=== PATIENT | male | born 1985 | race American Indian/Alaskan Native ===

== ENCOUNTER 2017-11-22 04:14 | Emergency (ER) | payer BC ==
[2017-11-22] MEDS ORDERED: DUONEB *Not for PRN Use IH ONE ×2 (04:31→04:32)
--- NOTE | 2017-11-22 07:23 | Emergency Department Report ---
ED Asthma HPI - General Chief Complaint: Adult Asthma Stated Complaint: SOB Time Seen by Provider: 11/22/17 07:22 Source: patient Mode of arrival: Ambulatory Limitations: No Limitations - History of Present Illness Initial Comments: This is a 32-year-old -[place] male who presents with shortness of breath, chest tightness, and wheezing for 2 days. Patient has a history of asthma. He is currently taking Maxair and albuterol. Patient reports having only 11 puffs left on Maxair and out of albuterol for one year. He has been taken Maxair for the past 2 days with no improvement of symptoms. Patient reports asthma usually flares wants the year when the season change. He forgot to get albuterol refills because he was feeling so well. Patient denies recent illness, fever, nausea of vomiting, and abdominal pain. MD Complaint: shortness of breath, wheezing -: days(s) (2 days) Asthma History: childhood onset Severity: mild Context: ran out of meds (ran out of albuterol inhaler), other (seasonal allergies) Associated Symptoms: dry cough, chest pain (chest tightness). denies: productive cough, fever, hemoptysis, leg edema, syncope Treatments Prior to Arrival: inhaled steroid - Related Data Current Asthma Therapy: inhaled steroid Home Medications Medication Instructions Recorded Confirmed Last Taken Albuterol Oral Liq [Proventil] 2 mg PO TID PRN 08/24/13 08/26/13 08/26/13 19:00 Previous Rx's Medication Instructions Recorded Last Taken Type ALBUTEROL NEB's [Proventil 0.083% 2.5 mg IH TID PRN #1 box 08/27/13 Unknown Rx NEBS] Azithromycin [Zithromax Z-JAMES] 250 mg PO DAILY #6 tablet 08/27/13 Unknown Rx Fluticasone Propionate [Flonase] 2 sprays NS DAILY #1 spray.susp 08/27/13 Unknown Rx Loratadine [Claritin] 10 mg PO DAILY #30 tablet 08/27/13 Unknown Rx Albuterol Sulfate [Albuterol 0.63% 0.63 mg IH TID PRN #1 box 05/13/15 Unknown Rx NEBS] Montelukast [Singulair] 10 mg PO QPM #30 tablet 05/13/15 Unknown Rx prednisoLONE SOD PHOSPHAT [Orapred] 60 mg PO DAILY 4 Days oral.liqd 05/13/15 Unknown Rx ALBUTEROL Inhaler [ProAir HFA 2 puff IH QID PRN #1 inhalation 12/29/15 Unknown Rx Inhaler] predniSONE [Deltasone] 50 mg PO QDAY #5 tab 12/29/15 Unknown Rx ALBUTEROL Inhaler [ProAir HFA 1 puff IH Q4-6H PRN #1 inha 11/22/17 Unknown Rx Inhaler] prednisoLONE ACETATE [Prednisolone 60 ml OP DAILY 4 Days #240 11/22/17 Unknown Rx Acetate] drops.susp Allergies Allergy/AdvReac Type Severity Reaction Status Date / Time Penicillins Allergy Hives Verified 08/24/13 10:56 ED Review of Systems ROS: Stated complaint: SOB Other details as noted in HPI Constitutional: denies: chills, fever Respiratory: cough, shortness of breath, wheezing Cardiovascular: chest pain (chest tightness). denies: palpitations, edema, syncope Gastrointestinal: denies: abdominal pain, nausea, vomiting, diarrhea Neurological: denies: headache, weakness, paresthesias Psychiatric: denies: anxiety, depression ED Past Medical Hx - Past Medical History Previous Medical History?: Yes Hx Asthma: Yes - Surgical History Past Surgical History?: No - Social History Smoking Status: Current Every Day Smoker Substance Use Type: None - Medications Home Medications: Home Medications Medication Instructions Recorded Confirmed Last Taken Type Albuterol Oral Liq [Proventil] 2 mg PO TID PRN 08/24/13 08/26/13 08/26/13 19:00 History ALBUTEROL NEB's [Proventil 0.083% 2.5 mg IH TID PRN #1 box 08/27/13 Unknown Rx NEBS] Azithromycin [Zithromax Z-JAMES] 250 mg PO DAILY #6 tablet 08/27/13 Unknown Rx Fluticasone Propionate [Flonase] 2 sprays NS DAILY #1 spray.susp 08/27/13 Unknown Rx Loratadine [Claritin] 10 mg PO DAILY #30 tablet 08/27/13 Unknown Rx Albuterol Sulfate [Albuterol 0.63% 0.63 mg IH TID PRN #1 box 05/13/15 Unknown Rx NEBS] Montelukast [Singulair] 10 mg PO QPM #30 tablet 05/13/15 Unknown Rx prednisoLONE SOD PHOSPHAT [Orapred] 60 mg PO DAILY 4 Days oral.liqd 05/13/15 Unknown Rx ALBUTEROL Inhaler [ProAir HFA 2 puff IH QID PRN #1 inhalation 12/29/15 Unknown Rx Inhaler] predniSONE [Deltasone] 50 mg PO QDAY #5 tab 12/29/15 Unknown Rx ALBUTEROL Inhaler [ProAir HFA 1 puff IH Q4-6H PRN #1 inha 11/22/17 Unknown Rx Inhaler] prednisoLONE ACETATE [Prednisolone 60 ml OP DAILY 4 Days #240 11/22/17 Unknown Rx Acetate] drops.susp ED Physical Exam - General Limitations: No Limitations General appearance: alert, in no apparent distress - Respiratory Respiratory exam: Present: normal lung sounds bilaterally. Absent: respiratory distress, wheezes, rales, rhonchi, stridor, accessory muscle use - Cardiovascular Cardiovascular Exam: Present: regular rate, normal rhythm, normal heart sounds. Absent: systolic murmur, diastolic murmur, rubs, gallop - GI/Abdominal GI/Abdominal exam: Present: soft, normal bowel sounds. Absent: distended, tenderness, guarding, rebound, rigid, organomegaly, mass - Neurological Exam Neurological exam: Present: alert, oriented X3, normal gait - Psychiatric Psychiatric exam: Present: normal affect, normal mood - Skin Skin exam: Present: warm, dry, intact, normal color. Absent: rash ED Course Vital Signs 11/22/17 11/22/17 04:18 07:47 Temperature 97.9 F 98.3 F Pulse Rate 94 H 83 Respiratory 12 15 Rate Blood Pressure 141/82 Blood Pressure 144/93 [Left] O2 Sat by Pulse 98 97 Oximetry ED Medical Decision Making - Radiology Data Radiology results: report reviewed Chest 2 views: History: Cough and chest tightness history of asthma. Findings: Cardiomegaly. Trachea is midline. No consolidation, pneumothorax or pleural effusion. Impression: No acute cardiopulmonary findings. - Medical Decision Making 32 y.o. -[place] male that presents with SOB, cough and chest tightness for 2 days. History of Asthma. Noncompliant with medication. He ran out of albuterol inhaler one year ago. Patient examined by me and in no distress and wheezing resolved. Vitals stable. Given duoneb treatment once and Solu-Medrol 125 mg IM once in ER. Chest x-ray obtained and normal. Asthma exacerbation, refill albuterol inhaler. Start prednisone 60 mg by mouth daily 4 days. Discharged home stable. Follow-up with PCP in 2-3 days. Critical care attestation.: If time is entered above; I have spent that time in minutes in the direct care of this critically ill patient, excluding procedure time. ED Disposition Clinical Impression: Asthma exacerbation Qualifiers: Asthma severity: mild Asthma persistence: intermittent Qualified Code(s): J45.21 - Mild intermittent asthma with (acute) exacerbation Disposition: TO HOME OR SELFCARE Is pt being admited?: No Does the pt Need Aspirin: No Condition: Stable Instructions: Asthma (ED) Additional Instructions: It is important to use inhaler or have active albuterol inhaler and avoiding asthma triggers. Complete full course of prednisone steroids as prescribed. Follow up with Primary Care Provider in 24-72 hours. Prescriptions: ALBUTEROL Inhaler [ProAir HFA Inhaler] 1 puff IH Q4-6H PRN #1 inha PRN Reason: Shortness Of Breath prednisoLONE ACETATE [Prednisolone Acetate] 60 ml OP DAILY 4 Days #240 drops.susp Referrals: [facility] [Outside] - 3-5 Days [facility] [Outside] - 3-5 Days [facility] [Outside] - 3-5 Days Forms: Work/School Release Form(ED) Time of Disposition: 08:29 Print Language: FRISIAN
[2017-11-22 07:48] VITALS: BP 144/93
--- NOTE | 2017-11-22 08:05 | XRay Report ---
Chest 2 views: History: Cough and chest tightness history of asthma. Findings: Cardiomegaly. Trachea is midline. No consolidation, pneumothorax or pleural effusion. Impression: No acute cardiopulmonary findings.
== END 2017-11-22 09:23 | disposition home or self-care (01) ==
LOC: ED 04:14
DX: J45.901 Unspecified asthma with (acute) exacerbation (principal); F17.200 Nicotine dependence, unspecified, uncomplicated; Z88.0 Allergy status to penicillin
CPT/HCPCS: 71046; 96372; 99283; J2930

== ENCOUNTER 2018-09-05 17:57 | Emergency (ER) | payer BC, OTHER ==
--- NOTE | 2018-09-05 19:14 | Emergency Department Report ---
Blank Doc - Documentation Documentation: Asthma is flaring up. Tightness in chest
--- NOTE | 2018-09-05 20:47 | Emergency Department Report ---
ED Shortness of Breath HPI - General Chief Complaint: Dyspnea/Respdistress Stated Complaint: SOB Time Seen by Provider: 09/05/18 20:34 Source: patient Mode of arrival: Ambulatory Limitations: No Limitations - History of Present Illness MD Complaint: shortness of breath - Related Data Home Medications Medication Instructions Recorded Confirmed Last Taken Albuterol Oral Liq (Nf) [Proventil] 2 mg PO TID PRN 08/24/13 08/26/13 08/26/13 19:00 Previous Rx's Medication Instructions Recorded Last Taken Type ALBUTEROL NEB's [Proventil 0.083% 2.5 mg IH TID PRN #1 box 08/27/13 Unknown Rx NEBS] Azithromycin [Zithromax Z-JAMES] 250 mg PO DAILY #6 tablet 08/27/13 Unknown Rx Fluticasone Propionate [Flonase] 2 sprays NS DAILY #1 spray.susp 08/27/13 Unknown Rx Loratadine [Claritin] 10 mg PO DAILY #30 tablet 08/27/13 Unknown Rx Albuterol Sulfate [Albuterol 0.63% 0.63 mg IH TID PRN #1 box 05/13/15 Unknown Rx NEBS] Montelukast [Singulair] 10 mg PO QPM #30 tablet 05/13/15 Unknown Rx prednisoLONE SOD PHOSPHAT [Orapred] 60 mg PO DAILY 4 Days oral.liqd 05/13/15 Unknown Rx ALBUTEROL Inhaler (OR & NICU) 2 puff IH QID PRN #1 inhalation 12/29/15 Unknown Rx [ProAir HFA Inhaler] predniSONE [Deltasone] 50 mg PO QDAY #5 tab 12/29/15 Unknown Rx ALBUTEROL Inhaler (OR & NICU) 1 puff IH Q4-6H PRN #1 inha 11/22/17 Unknown Rx [ProAir HFA Inhaler] prednisoLONE acetate [Prednisolone 60 ml OP DAILY 4 Days #240 11/22/17 Unknown Rx Acetate] drops.susp Allergies Allergy/AdvReac Type Severity Reaction Status Date / Time Penicillins Allergy Hives Verified 08/24/13 10:56 ED Review of Systems ROS: Stated complaint: SOB Other details as noted in HPI ED Past Medical Hx - Past Medical History Hx Asthma: Yes - Surgical History Past Surgical History?: No - Social History Smoking Status: Never Smoker Substance Use Type: Alcohol, Marijuana - Medications Home Medications: Home Medications Medication Instructions Recorded Confirmed Last Taken Type Albuterol Oral Liq (Nf) [Proventil] 2 mg PO TID PRN 08/24/13 08/26/13 08/26/13 19:00 History ALBUTEROL NEB's [Proventil 0.083% 2.5 mg IH TID PRN #1 box 08/27/13 Unknown Rx NEBS] Azithromycin [Zithromax Z-JAMES] 250 mg PO DAILY #6 tablet 08/27/13 Unknown Rx Fluticasone Propionate [Flonase] 2 sprays NS DAILY #1 spray.susp 08/27/13 Unknown Rx Loratadine [Claritin] 10 mg PO DAILY #30 tablet 08/27/13 Unknown Rx Albuterol Sulfate [Albuterol 0.63% 0.63 mg IH TID PRN #1 box 05/13/15 Unknown Rx NEBS] Montelukast [Singulair] 10 mg PO QPM #30 tablet 05/13/15 Unknown Rx prednisoLONE SOD PHOSPHAT [Orapred] 60 mg PO DAILY 4 Days oral.liqd 05/13/15 Unknown Rx ALBUTEROL Inhaler (OR & NICU) 2 puff IH QID PRN #1 inhalation 12/29/15 Unknown Rx [ProAir HFA Inhaler] predniSONE [Deltasone] 50 mg PO QDAY #5 tab 12/29/15 Unknown Rx ALBUTEROL Inhaler (OR & NICU) 1 puff IH Q4-6H PRN #1 inha 11/22/17 Unknown Rx [ProAir HFA Inhaler] prednisoLONE acetate [Prednisolone 60 ml OP DAILY 4 Days #240 11/22/17 Unknown Rx Acetate] drops.susp ED Physical Exam - General Limitations: No Limitations ED Course Vital Signs 09/05/18 19:12 Temperature 97.2 F L Pulse Rate 88 Respiratory 18 Rate Blood Pressure 123/78 O2 Sat by Pulse 98 Oximetry Critical care attestation.: If time is entered above; I have spent that time in minutes in the direct care of this critically ill patient, excluding procedure time. ED Disposition Condition: Stable Referrals: RASHEL NGUYEN MD [Primary Care Provider] - 3-5 Days
--- NOTE | 2018-09-05 21:01 | Emergency Department Report ---
ED Shortness of Breath HPI - General Chief Complaint: Dyspnea/Respdistress Stated Complaint: SOB Time Seen by Provider: 09/05/18 20:34 Source: patient Mode of arrival: Ambulatory Limitations: No Limitations - History of Present Illness Initial Comments: Comes in for shortness of breath and chest tightness reports she's been out of his albuterol medication. She reports that recently got out of prison that he was here for short period of time and works in a warehouse. His asthma was triggered by those elements. He denies any fever chills no nausea no vomiting. -: days(s) (2) Severity: mild Pain Scale: 0 Consistency: intermittent Improves With: bronchodilators Context: allergen exposure Associated Symptoms: cough Treatments Prior to Arrival: none - Related Data Home Medications Medication Instructions Recorded Confirmed Last Taken Albuterol Oral Liq (Nf) [Proventil] 2 mg PO TID PRN 08/24/13 08/26/13 08/26/13 19:00 Previous Rx's Medication Instructions Recorded Last Taken Type Azithromycin [Zithromax Z-JAMES] 250 mg PO DAILY #6 tablet 08/27/13 Unknown Rx Fluticasone Propionate [Flonase] 2 sprays NS DAILY #1 spray.susp 08/27/13 Unknown Rx Albuterol Sulfate [Albuterol 0.63% 0.63 mg IH TID PRN #1 box 05/13/15 Unknown Rx NEBS] prednisoLONE SOD PHOSPHAT [Orapred] 60 mg PO DAILY 4 Days oral.liqd 05/13/15 Unknown Rx ALBUTEROL Inhaler (OR & NICU) 2 puff IH QID PRN #1 inhalation 12/29/15 Unknown Rx [ProAir HFA Inhaler] predniSONE [Deltasone] 50 mg PO QDAY #5 tab 12/29/15 Unknown Rx ALBUTEROL Inhaler (OR & NICU) 1 puff IH Q4-6H PRN #1 inha 09/05/18 Unknown Rx [ProAir HFA Inhaler] ALBUTEROL NEB's [Proventil 0.083% 2.5 mg IH TID PRN #1 box 09/05/18 Unknown Rx NEBS] Loratadine [Claritin] 10 mg PO DAILY #30 tablet 09/05/18 Unknown Rx Montelukast [Singulair] 10 mg PO QPM #30 tablet 09/05/18 Unknown Rx prednisoLONE acetate [Prednisolone 60 ml OP DAILY 4 Days #240 09/05/18 Unknown Rx Acetate] drops.susp Allergies Allergy/AdvReac Type Severity Reaction Status Date / Time Penicillins Allergy Hives Verified 08/24/13 10:56 ED Review of Systems ROS: Stated complaint: SOB Other details as noted in HPI Comment: All other systems reviewed and negative ENT: congestion Respiratory: cough Gastrointestinal: denies: abdominal pain, nausea, diarrhea Genitourinary: denies: urgency, dysuria ED Past Medical Hx - Past Medical History Hx Asthma: Yes - Surgical History Past Surgical History?: No - Social History Smoking Status: Never Smoker Substance Use Type: Alcohol, Marijuana - Medications Home Medications: Home Medications Medication Instructions Recorded Confirmed Last Taken Type Albuterol Oral Liq (Nf) [Proventil] 2 mg PO TID PRN 08/24/13 08/26/13 08/26/13 19:00 History Azithromycin [Zithromax Z-JAMES] 250 mg PO DAILY #6 tablet 08/27/13 Unknown Rx Fluticasone Propionate [Flonase] 2 sprays NS DAILY #1 spray.susp 08/27/13 Unknown Rx Albuterol Sulfate [Albuterol 0.63% 0.63 mg IH TID PRN #1 box 05/13/15 Unknown Rx NEBS] prednisoLONE SOD PHOSPHAT [Orapred] 60 mg PO DAILY 4 Days oral.liqd 05/13/15 Unknown Rx ALBUTEROL Inhaler (OR & NICU) 2 puff IH QID PRN #1 inhalation 12/29/15 Unknown Rx [ProAir HFA Inhaler] predniSONE [Deltasone] 50 mg PO QDAY #5 tab 12/29/15 Unknown Rx ALBUTEROL Inhaler (OR & NICU) 1 puff IH Q4-6H PRN #1 inha 09/05/18 Unknown Rx [ProAir HFA Inhaler] ALBUTEROL NEB's [Proventil 0.083% 2.5 mg IH TID PRN #1 box 09/05/18 Unknown Rx NEBS] Loratadine [Claritin] 10 mg PO DAILY #30 tablet 09/05/18 Unknown Rx Montelukast [Singulair] 10 mg PO QPM #30 tablet 09/05/18 Unknown Rx prednisoLONE acetate [Prednisolone 60 ml OP DAILY 4 Days #240 09/05/18 Unknown Rx Acetate] drops.susp ED Physical Exam - General Limitations: No Limitations General appearance: alert, in no apparent distress - Head Head exam: Present: atraumatic, normocephalic - Eye Eye exam: Present: EOMI - ENT ENT exam: Present: mucous membranes moist - Neck Neck exam: Present: normal inspection - Respiratory Respiratory exam: Present: normal lung sounds bilaterally. Absent: respiratory distress, wheezes, rales, rhonchi, chest wall tenderness, accessory muscle use, decreased breath sounds - Cardiovascular Cardiovascular Exam: Present: regular rate, normal rhythm. Absent: systolic murmur, diastolic murmur, rubs, gallop - GI/Abdominal GI/Abdominal exam: Present: soft, normal bowel sounds - Neurological Exam Neurological exam: Present: alert, oriented X3 - Psychiatric Psychiatric exam: Present: normal affect, normal mood - Skin Skin exam: Present: warm, dry, intact, normal color. Absent: rash ED Course Vital Signs 09/05/18 19:12 Temperature 97.2 F L Pulse Rate 88 Respiratory 18 Rate Blood Pressure 123/78 O2 Sat by Pulse 98 Oximetry ED Medical Decision Making - Medical Decision Making Patient's been evaluated by this provider fast track. Patient be discharged home on albuterol Claritin prednisone and Singulair. Critical care attestation.: If time is entered above; I have spent that time in minutes in the direct care of this critically ill patient, excluding procedure time. ED Disposition Clinical Impression: Asthma Qualifiers: Asthma severity: mild Asthma persistence: intermittent Asthma complication type: with acute exacerbation Qualified Code(s): J45.21 - Mild intermittent asthma with (acute) exacerbation Disposition: DC- TO HOME OR SELFCARE Is pt being admited?: No Does the pt Need Aspirin: No Condition: Stable Instructions: Asthma (ED), Reactive Airways Disease (ED) Additional Instructions: Please take medication as prescribed. Prescriptions: Loratadine [Claritin] 10 mg PO DAILY #30 tablet prednisoLONE acetate [Prednisolone Acetate] 60 ml OP DAILY 4 Days #240 drops.susp ALBUTEROL Inhaler (OR & NICU) [ProAir HFA Inhaler] 1 puff IH Q4-6H PRN #1 inha PRN Reason: Shortness Of Breath ALBUTEROL NEB's [Proventil 0.083% NEBS] 2.5 mg IH TID PRN #1 box PRN Reason: Wheezing Montelukast [Singulair] 10 mg PO QPM #30 tablet Referrals: RASHEL NGUYEN MD [Primary Care Provider] - 3-5 Days [facility] [Provider Group] - 3-5 Days Forms: Work/School Release Form(ED)
== END 2018-09-05 21:15 | disposition home or self-care (01) ==
LOC: ED 17:57